=== PATIENT | female | born 1940 | race Caucasian/White ===

== ENCOUNTER 2018-04-10 10:33 | Emergency (ER) | payer MEDICARE ==
[2018-04-10] MEDS ORDERED: ONDANSETRON ODT 4 MG TAB ONE (11:16)
[2018-04-10] MEDS ORDERED: HYDROCODONE/ACETAMINOPHEN 10/325 MG TAB ONE (11:17)
[2018-04-10] MEDS ORDERED: ACETAMINOPHEN EXTRA STRENGTH 500 MG TABLET ONE (11:39)
== END 2018-04-10 13:08 | disposition home or self-care (01) ==
LOC: EDH 10:33
DX: M50.30 Other cervical disc degeneration, unspecified cervical region (principal); M51.34 Other intervertebral disc degeneration, thoracic region; I10 Essential (primary) hypertension; Z98.890 Other specified postprocedural states; Z72.0 Tobacco use; Z88.1 Allergy status to other antibiotic agents
CPT/HCPCS: 72125; 72128